=== PATIENT | female | born 1970 | race Caucasian/White ===

== ENCOUNTER → 2020-08-05 12:41 | Outpatient (BNVA) | payer SELFPAY | PROVIDERS: Family Provider Nurse Practitioner Family; PCP Nurse Practitioner Family; Visit Provider Family Medicine | DX: I10 Essential (primary) hypertension (principal); E11.9 Type 2 diabetes mellitus without complications; N32.81 Overactive bladder; F33.41 Major depressive disorder, recurrent, in partial remission | CPT/HCPCS: 80053; 80061; 83036 ==

== ENCOUNTER → 2021-01-04 09:39 | Outpatient (BNVA) | payer SELFPAY | PROVIDERS: Family Provider Nurse Practitioner Family; PCP Family Medicine; Visit Provider Family Medicine | DX: I10 Essential (primary) hypertension (principal); E11.9 Type 2 diabetes mellitus without complications; F33.41 Major depressive disorder, recurrent, in partial remission; G47.00 Insomnia, unspecified; N32.81 Overactive bladder; F51.05 Insomnia due to other mental disorder; F99 Mental disorder, not otherwise specified; M25.562 Pain in left knee; G89.29 Other chronic pain | CPT/HCPCS: 80053; 83036 ==

== ENCOUNTER → 2021-06-30 18:00 | Outpatient (BNVA) | payer SELFPAY | PROVIDERS: Family Provider Nurse Practitioner Family; PCP Family Medicine; Visit Provider Family Medicine | DX: I10 Essential (primary) hypertension (principal); Z13.220 Encounter for screening for lipoid disorders; Z13.6 Encounter for screening for cardiovascular disorders; E11.9 Type 2 diabetes mellitus without complications | CPT/HCPCS: 80053; 80061; 83036 ==

== ENCOUNTER → 2022-02-28 17:01 | Outpatient (BNVA) | payer SELFPAY | PROVIDERS: Family Provider Nurse Practitioner Family; PCP Family Medicine; Visit Provider Family Medicine | DX: S69.91XA Unspecified injury of right wrist, hand and finger(s), initial encounter (principal); X58.XXXA Exposure to other specified factors, initial encounter | CPT/HCPCS: 73130 ==

== ENCOUNTER 2022-03-03 13:37 | Outpatient (CLI) | payer SELFPAY | END 2022-03-03 13:38 | disposition home or self-care (01) | LOC: SPT 13:38 | PROVIDERS: Family Provider Nurse Practitioner Family; PCP Family Medicine; Visit Provider Orthopaedic Surgery | DX: Z46.89 Encounter for fitting and adjustment of other specified devices (principal); S62.392D Other fracture of third metacarpal bone, right hand, subsequent encounter for fracture with routine healing; X58.XXXD Exposure to other specified factors, subsequent encounter | CPT/HCPCS: 97760; L3984 ==

== ENCOUNTER → 2022-03-07 11:04 | Outpatient (BNVA) | payer SELFPAY | PROVIDERS: Family Provider Nurse Practitioner Family; PCP Family Medicine; Visit Provider Family Medicine | DX: I10 Essential (primary) hypertension (principal); N32.81 Overactive bladder; F33.41 Major depressive disorder, recurrent, in partial remission; G47.00 Insomnia, unspecified; E11.9 Type 2 diabetes mellitus without complications; S62.309A Unspecified fracture of unspecified metacarpal bone, initial encounter for closed fracture; Z68.43 Body mass index [BMI] 50.0-59.9, adult; Z13.29 Encounter for screening for other suspected endocrine disorder; F51.05 Insomnia due to other mental disorder; F99 Mental disorder, not otherwise specified | CPT/HCPCS: 80053; 83036; 84443 ==

== ENCOUNTER → 2022-03-23 09:44 | Outpatient (BNVA) | payer SELFPAY | PROVIDERS: Family Provider Nurse Practitioner Family; PCP Family Medicine; Visit Provider Orthopaedic Surgery | DX: S62.322A Displaced fracture of shaft of third metacarpal bone, right hand, initial encounter for closed fracture (principal); X58.XXXA Exposure to other specified factors, initial encounter | CPT/HCPCS: 73130 ==

== ENCOUNTER → 2022-05-17 14:12 | Outpatient (BNVA) | payer SELFPAY | PROVIDERS: Family Provider Nurse Practitioner Family; PCP Family Medicine; Visit Provider Orthopaedic Surgery | DX: S62.300A Unspecified fracture of second metacarpal bone, right hand, initial encounter for closed fracture (principal); X58.XXXA Exposure to other specified factors, initial encounter | CPT/HCPCS: 73130 ==

== ENCOUNTER → 2022-05-19 08:58 | Outpatient (BNVA) | payer SELFPAY | PROVIDERS: Family Provider Nurse Practitioner Family; PCP Family Medicine; Visit Provider Family Medicine | DX: I10 Essential (primary) hypertension (principal); M79.7 Fibromyalgia; M25.50 Pain in unspecified joint; E11.9 Type 2 diabetes mellitus without complications | CPT/HCPCS: 80053; 80061; 85025; 85651; 86038; 86140 ==

== ENCOUNTER → 2022-11-03 10:10 | Outpatient (BNVA) | payer SELFPAY | PROVIDERS: Family Provider Nurse Practitioner Family; PCP Family Medicine; Visit Provider Family Medicine | DX: M79.7 Fibromyalgia (principal); I10 Essential (primary) hypertension; E11.9 Type 2 diabetes mellitus without complications; Z68.43 Body mass index [BMI] 50.0-59.9, adult; F33.41 Major depressive disorder, recurrent, in partial remission | CPT/HCPCS: 80053; 83036 ==

== ENCOUNTER → 2023-11-15 10:15 | Outpatient (BNVA) | payer SELFPAY | PROVIDERS: Family Provider Nurse Practitioner Family; PCP Family Medicine; Visit Provider Nurse Practitioner Family | DX: M79.7 Fibromyalgia (principal); F33.41 Major depressive disorder, recurrent, in partial remission; I10 Essential (primary) hypertension; E11.9 Type 2 diabetes mellitus without complications; N32.81 Overactive bladder; M25.562 Pain in left knee | CPT/HCPCS: 80053; 80061; 83036; 85025 ==

== ENCOUNTER → 2024-04-09 12:19 | Outpatient (BNVA) | payer SELFPAY | PROVIDERS: Family Provider Nurse Practitioner Family; PCP Family Medicine; Visit Provider Nurse Practitioner Family | DX: R07.9 Chest pain, unspecified (principal) | CPT/HCPCS: 93005 ==

== ENCOUNTER → 2024-07-24 13:51 | Outpatient (BNVA) | payer SELFPAY | PROVIDERS: Family Provider Nurse Practitioner Family; PCP Family Medicine; Visit Provider Family Medicine | DX: G89.29 Other chronic pain (principal); E11.9 Type 2 diabetes mellitus without complications; R41.3 Other amnesia; M54.6 Pain in thoracic spine; M54.16 Radiculopathy, lumbar region; M54.50 Low back pain, unspecified | CPT/HCPCS: 72040; 72072; 72100; 73610; 80053; 80061; 82607; 82746; 83036; 84443; 85025 ==

== ENCOUNTER → 2025-01-29 10:26 | Outpatient (BNVA) | payer OTHER, MEDICARE, SELFPAY | PROVIDERS: PCP Family Medicine; Visit Provider Family Medicine | DX: E11.9 Type 2 diabetes mellitus without complications (principal); I10 Essential (primary) hypertension; Z78.0 Asymptomatic menopausal state; Z13.820 Encounter for screening for osteoporosis; Z87.81 Personal history of (healed) traumatic fracture | CPT/HCPCS: 80053; 83036 ==

== ENCOUNTER 2025-03-21 14:04 | Outpatient (CLI) | payer MEDICARE, OTHER, SELFPAY ==
--- NOTE | 2025-03-21 14:05 | XR_ITS ---
WS: [id number] SCREENING DEXA SCAN [place] CLINICAL INFORMATION: ENCOUNTER FOR SCREENING FOR OSTEOPOROSIS COMPARISON: None. FINDINGS: The L1-L4 bone mineral density measures 1.260 g/cm2. This corresponds to a T score score of 0.7 and Z score of 0.4. Left femoral neck bone mineral density measures 0.788 g/cm2. This corresponds to a T score of -1.7 and Z score of -1.8. Right femoral neck bone mineral density measures 0.921 g/cm2. This corresponds to a T score -0.7of and Z score of -0.8. Mean femoral neck bone mineral density measures 0.855 g/cm2. This corresponds to a T score of -1.2 and Z score of -1.3. XR/XR DEXA axial skeleton* [id number] IMPRESSION: Normal bone mineralization lumbar spine. Osteopenia femoral necks. Patient's FRAX calculated 10 year probability for major osteoporotic fracture i s 13.9% and osteoporotic hip fracture is 2.4%.
== END 2025-03-21 14:05 | disposition home or self-care (01) ==
PROVIDERS: PCP Family Medicine; Visit Provider Family Medicine
DX: Z13.820 Encounter for screening for osteoporosis (principal); Z78.0 Asymptomatic menopausal state; M85.89 Other specified disorders of bone density and structure, multiple sites
CPT/HCPCS: 77080

== ENCOUNTER → 2025-04-15 10:13 | Outpatient (BNVA) | payer MEDICARE, OTHER, SELFPAY | PROVIDERS: PCP Family Medicine; Visit Provider Anesthesiology Pain Medicine | DX: M47.814 Spondylosis without myelopathy or radiculopathy, thoracic region (principal); M54.50 Low back pain, unspecified; G89.29 Other chronic pain; M54.9 Dorsalgia, unspecified | CPT/HCPCS: 99204 ==

== ENCOUNTER → 2025-08-12 14:03 | Outpatient (BNVA) | payer MEDICARE, MEDICAID, SELFPAY | PROVIDERS: PCP Family Medicine; Visit Provider Family Medicine | DX: E11.9 Type 2 diabetes mellitus without complications (principal); I10 Essential (primary) hypertension; M79.7 Fibromyalgia | CPT/HCPCS: 80048; 80061; 83036 ==